=== PATIENT | female | born 1995 | race Caucasian/White ===

== ENCOUNTER 2024-05-27 11:40 | Outpatient (CLI) | payer OTHER ==
[~2024-05-27] VITALS: Ht 170.2 cm; Wt 97.3 kg
--- NOTE | 2024-05-27 11:45 | NUR ---
PT AMBULATORY TO UNIT WITH SPOUSE, SENT FROM OFFICE FOR HIGH BPX2. PT REPORTS NO LOF, NO VAGINAL BLEEDING, POSITIVE MOVEMENT, AND NO CTX. EFM CAT 1. WILL FOLLOW POC.
[2024-05-27 11:49] VITALS: BP 148/97; PULSE 77
[2024-05-27 11:55] VITALS: BP 124/71; PULSE 75
[2024-05-27 12:00] VITALS: TEMP 98.2
[2024-05-27 12:15] VITALS: BP 114/57; PULSE 76
[2024-05-27] MEDS ORDERED: LR 1,000 ML IV PRN (12:15)
[2024-05-27] MEDS ORDERED: PRENATAL TABLET PO (12:16)
[2024-05-27 12:21] LABS: BASO % 0.5 % (0.0-2.0); EOS # 0.2 K/mm3 (0.0-0.7); EOS % 2.2 % (0.0-4.0); GRAN # 5.3 K/mm3 (1.4-6.5); GRAN % 65.9 % (42.2-75.2); HEMATOCRIT 30.5 % (37.0-47.0); HEMOGLOBIN 10.4 g/dl (12.5-16.0); LYMPH % 24.3 % (20.0-51.0); MEAN CELL VOLUME 89 fl (80.0-100.0); MEAN CORPUSCULAR HEMOGLOBIN 31 pg (27-31); MEAN CORPUSCULAR HGB CONC 34 g/dl (33.0-37.0); MEAN PLATELET VOLUME 10.6 fl (7.4-10.4); MONO # 0.5 K/mm3 (0.1-0.6); MONO % 6.2 % (1.7-9.3); PLATELET COUNT 161 K/mm3 (130-400); RED BLOOD COUNT 3.41 M/mm3 (4.10-5.30); REDCELL DISTRIBUTION WIDTH-CV 11.9 % (11.5-14.5)
[2024-05-27 12:24] LABS: PH 6.5 (5.0-8.5); URINE APPEARANCE CLEAR (CLEAR/HAZY); URINE BLOOD NEGATIVE (NEGATIVE); URINE COLOR YELLOW (YELLOW); URINE GLUCOSE NEGATIVE (NEGATIVE); URINE KETONE NEGATIVE (NEGATIVE); URINE NITRATE NEGATIVE (NEGATIVE); URINE PROTEIN(semi-quant) NEGATIVE (NEGATIVE); URINE UROBILINOGEN 0.2 E.U/dL (0.2-1.0)
[2024-05-27 12:25] VITALS: BP 118/57; PULSE 75
--- NOTE | 2024-05-27 12:30 | NUR ---
ON UNIT, REVIEWED STRIP, LABS, AND VS. AT PT BEDSIDE TO DISCUSS GOOD RESULTS. PT UNDERSTANDS AND IS COMFORTABLE GOING HOME.
[2024-05-27 12:39] LABS: ALBUMIN 2.6 g/dL (3.5-5.0); BILIRUBIN,TOTAL 0.2 mg/dL (0.2-1.2); CALCIUM 9.2 mg/dL (8.4-10.2); CREATININE, serum 0.78 mg/dL (0.57-1.11); POTASSIUM 4.3 mEq/L (3.5-4.5); TOTAL PROTEIN 6.1 g/dl (6.2-8.1)
[2024-05-27 12:47] VITALS: BP 109/56; PULSE 74; TEMP 98.2
[2024-05-27 12:53] LABS: URINE RBC 0-2 /hpf (0-2)
[2024-05-27 12:54] LABS: URINE BACTERIA MODERATE /hpf (NONE SEEN)
[2024-05-27] MEDS ORDERED: Influenza Virus Vaccine, Trivalent '24-25 0.5 ML ONCE TODAY IM ONE (13:00)
[2024-05-27 14:03] LABS: COLLECTION METHOD CLEAN CATCH
== END 2024-05-27 12:47 | disposition home or self-care (01) ==
LOC: LDRO 11:40
PROVIDERS: Obstetrics & Gynecology
DX: Z34.93 Encounter for supervision of normal pregnancy, unspecified, third trimester (principal); Z3A.37 37 weeks gestation of pregnancy

== ENCOUNTER 2024-06-08 06:43 | Inpatient (IN) | payer OTHER ==
[~2024-06-08] VITALS: Ht 172.7 cm; Wt 100.5 kg
[2024-06-08] VITALS (61 sets, daily range): BP systolic 109–164; BP diastolic 58–102; PULSE 65–115; TEMP 98–98.2
[~2024-06-08 06:43] MED LIST: LR & Oxytocin 500 ML IV SCH; LR 1,000 ML IV PRN; LR 1,000 ML IV SCH; PRENATAL TABLET PO
[2024-06-08 07:38] LABS: BASO % 0.4 % (0.0-2.0); EOS # 0.3 K/mm3 (0.0-0.7); EOS % 2.9 % (0.0-4.0); GRAN # 5.7 K/mm3 (1.4-6.5); GRAN % 63.2 % (42.2-75.2); HEMOGLOBIN 11.2 g/dl (12.5-16.0); LYMPH # 2.5 K/mm3 (1.2-3.4); LYMPH % 27.3 % (20.0-51.0); MEAN CELL VOLUME 90 fl (80.0-100.0); MEAN CORPUSCULAR HEMOGLOBIN 31 pg (27-31); MEAN CORPUSCULAR HGB CONC 35 g/dl (33.0-37.0); MONO # 0.5 K/mm3 (0.1-0.6); MONO % 5.4 % (1.7-9.3); PLATELET COUNT 165 K/mm3 (130-400); REDCELL DISTRIBUTION WIDTH-CV 12.2 % (11.5-14.5)
[2024-06-08 07:39] LABS: HEMATOCRIT 32.5 % (37.0-47.0)
[2024-06-08 07:43] LABS: PH 5.5 (5.0-8.5); URINE APPEARANCE CLEAR (CLEAR/HAZY); URINE BLOOD NEGATIVE (NEGATIVE); URINE COLOR YELLOW (YELLOW); URINE GLUCOSE NEGATIVE (NEGATIVE); URINE KETONE NEGATIVE (NEGATIVE); URINE NITRATE NEGATIVE (NEGATIVE); URINE PROTEIN(semi-quant) 1+ (NEGATIVE); URINE UROBILINOGEN 0.2 E.U/dL (0.2-1.0)
[2024-06-08 07:50] LABS: COLLECTION METHOD CLEAN CATCH
[2024-06-08 07:56] LABS: ALBUMIN 2.6 g/dL (3.5-5.0); BILIRUBIN,TOTAL 0.2 mg/dL (0.2-1.2); CALCIUM 9.2 mg/dL (8.4-10.2); CREATININE, serum 0.79 mg/dL (0.57-1.11); TOTAL PROTEIN 6.3 g/dl (6.2-8.1)
[2024-06-08 12:42] LABS: TRICYCLIC ANTIDEPRESS URINE NEGATIVE (NEGATIVE)
--- NOTE | 2024-06-08 12:45 | NUR ---
DIFFICULTY TRACING FHT. RN AT BEDSIDE LISTENING TO HEART TONES THAT DID NOT TRACE AND TRYING TO CONTINUE GETTING FHT TO TRACE. MULTIPLE RN'S AT BEDSIDE TRYING TO ASSIST THROUGHT THE DAY. PT AND SPOUSE DO NOT WANT AN FSE PLACED ON BABY. RN CONTINUES TO MONITOR AT BEDSIDE.
--- NOTE | 2024-06-08 13:45 | NUR ---
DIFFICULTY TRACING CTX AT THIS TIME, FHT TRACING SPOTTY, BUT RN ATTEMPTING TO TRACE FHT AT BEDSIDE. WILL CONTINUE TO MONITOR. 1340- PT BP 175/100. REPEATED BP 162/94. CALLED DR WHITE AT THIS TIME. DR WHITE ORDERED THE LABATALOL PROTOCAL.
--- NOTE | 2024-06-08 14:30 | NUR ---
DIFFICULTY TRACING FHT DURING THIS TIME. MULTIPLE NURSES ATTEMPTING TO TRACE FHT. RN REMAINS AT BEDSIDE TRYING TO TRACE HEAT TONES AT THIS TIME. SECOND DOSE OF LABATALOL GIVEN AT 1430 DUE TO BP OF 159/100.
--- NOTE | 2024-06-08 16:45 | NUR ---
[address] WHITE TO REPORT RECURRENT VARRIABLES THAT ARE DIFFICULT TO TRACE, WITH ONE DOWN INTO THE 60'S. HE SAID THAT HE WOULD LOOK AT THE STRIP AND ASKED ME TO DO AN SVE ON THE PT AND UPDATE HIM AT THAT TIME. 1511 SVE /-2. [address] WHITE BACK TO UPDATE ON SVE. DR WHITE SAID THAT HE LOOKED OVER THE STRIP AND WAS OKAY WITH CONTINUING ON WITH PITOCIN. RN REMAINS AT BEDSIDE DURING THIS TIME. ATTEMPTING TO TRACE HEART TONES DURING CTX. DIFFICULTY TRACING CTX AT THIS TIME DUE TO MATERNAL POSITION.
[2024-06-08] MEDS ORDERED: ROPivacaine PF 0.2% 200 ML IV ONE (16:57)
--- NOTE | 2024-06-08 17:10 | NUR ---
1700- PT SEATED AT BEDSIDE, BP AND O2 MONITORS ON. CONSTANCE AT BEDSIDE DISCUSSING RISK OF EPIDURAL. PT GAVE VERBAL CONSENT FOR EPIDURAL. 1710- TEST DOSE. PT THEN TAPED AND REPOSITIONEDTO WEDGE RIGHT. PT TOLERATED THE PROCEEDURE WELL. BP HIGH DURING PROCEEDURE BUT DECREASED AFTERWARDS. DIFFICULTY TRACING FHT AT THIS TIME.
[2024-06-08] MEDS ORDERED: diphenhydrAMINE 25 MG CAP PO PRN (17:30)
[2024-06-08] MEDS ORDERED: LR 1,000 ML IV SCH (17:30)
[2024-06-08] MEDS ORDERED: ePHEDrine 50 MG/10 ML VIAL IV PRN (17:30)
[2024-06-08] MEDS ORDERED: Naloxone 0.4 MG/ML VIAL IV PRN (17:30)
[2024-06-08] MEDS ORDERED: diphenhydrAMINE 50 MG/ML 1 ML VIAL IV PRN (17:30)
[2024-06-08] MEDS ORDERED: LR 500 ML IV PRN (17:30)
[2024-06-08] MEDS ORDERED: Ondansetron 4 MG/2 ML VIAL IV PRN (17:30)
--- NOTE | 2024-06-08 17:35 | NUR ---
DR WHITE CALLED FOR AN UPDATE. HE WAS INFORMED THAT PT HAD JUST HAD A LATE DECEL. HE SAID THAT HE WOULD BE HERE SHORTLY AFTER 1800. 1739 PITOCIN WAS SHUT OFF DUE TO 3 LATE DECELS AND A VARRIABLE INTO THE 60'S.
--- NOTE | 2024-06-08 18:20 | NUR ---
Pit restart @ 1/2 of previous rate, 10 mU/min at this time per Dr.Newcomer calles, note Category I strip.
--- NOTE | 2024-06-08 18:25 | NUR ---
Repositioned right lateral with left leg up in stirrup. This board writer handholding US.
--- NOTE | 2024-06-08 18:27 | NUR ---
here for evaluation. Repeat SVE /-2 per . Discusses possibility of needing to place internal monitors in order to continue safely with induction of labor, pitocin use. Patient verbalizes understanding. Declines internal monitors at this time.
--- NOTE | 2024-06-08 18:31 | NUR ---
does bedside US to assist this typewriter ribbon winder in US placement.
--- NOTE | 2024-06-08 18:32 | NUR ---
Repositioned back in right lateral with left leg up in stirrup.
--- NOTE | 2024-06-08 19:16 | NUR ---
Repositioned upright in throne's. Note continued difficulty tracing FHT without handholding. Much difficulty palpating contractions, tracing with external toco.
--- NOTE | 2024-06-08 19:30 | NUR ---
Patient agreeable to FSE placement at this time. Repeat SVE /-2.
--- NOTE | 2024-06-08 19:34 | NUR ---
Repositioned left lateral with right leg up in stirrup.
--- NOTE | 2024-06-08 20:51 | NUR ---
here for evaluation. Reviews monitor strip and performs repeat SVE. This securities underwriter explains can only pick up worker her contractions with her sitting upright, if reposition, unable to trace contractions, therefore makes it difficult to descern decelerations.
--- NOTE | 2024-06-08 20:56 | NUR ---
Rate of pitocin decreased to 18mU/min, as noted new onset recurrent late decelerations.
--- NOTE | 2024-06-08 21:55 | NUR ---
Note intermittent late decels correlating with coupling contraction pattern.
--- NOTE | 2024-06-08 22:15 | NUR ---
States she is beginning to feel pressure in her pelvis with contractions. Pushes PCEA button at this time.
--- NOTE | 2024-06-08 23:33 | NUR ---
First push attempt with instruction.
[2024-06-09] VITALS (16 sets, daily range): BP systolic 132–157; BP diastolic 63–94; PULSE 71–115; TEMP 97.7–98.5
--- NOTE | 2024-06-09 | NUR ---
After less than 30 minutes of expulsive pushing efforts, spontaneous vaginal delivery of viable male infant by at this time. Delayed cord clamping per patient request. Cord doubly clamped and cut by father of baby under direction of . immediately to maternal abdomen. Prudence Eastman RN, nursery nurse at bedside to dry and stimulate infant. Once cord clamped and cut, moved skin to skin on maternal chest.
--- NOTE | 2024-06-09 00:10 | NUR ---
Spontaneous vaginal delivery of placenta by at this time. Pit bolus begun @ 333mU/min immediately following. Perineum intact per 's assessment, no repair required. Epidural pump off at this time.
--- NOTE | 2024-06-09 00:12 | NUR ---
Note free flow lochia. remains in room, aware. Assesses and gives verbal order for Cytotec 800 mcg rectally.
--- NOTE | 2024-06-09 00:17 | NUR ---
800 mcg Cytotec administered rectally by at this time.
[2024-06-09] MEDS ORDERED: Magnes Hydrox (MOM) 80 MG/ML 30 ML CUP PO PRN (00:30)
[2024-06-09] MEDS ORDERED: Loratadine 10 MG TAB PO PRN (00:30)
[2024-06-09] MEDS ORDERED: oxyCODONE 5 MG TAB PO PRN (00:45)
[2024-06-09] MEDS ORDERED: Tdap Vaccine 0.5 ML SYRINGE IM SCH (00:45)
[2024-06-09] MEDS ORDERED: miSOPROStol 200 MCG TAB RC ONE (00:45)
[2024-06-09] MEDS ORDERED: Phenylephrine/Mineral Oil/Petrolatum 57 GM TUBE RC PRN (00:45)
[2024-06-09] MEDS ORDERED: Measles/Mumps/Rubella Virus Vaccine Live w Diluent 0.5 ML VIAL SQ SCH (00:45)
[2024-06-09] MEDS ORDERED: Ibuprofen 600 MG TAB PO SCH (00:45)
[2024-06-09] MEDS ORDERED: Mag/Al Hydrox/Simeth Susp 30 ML CUP PO PRN (00:45)
[2024-06-09] MEDS ORDERED: Witch Hazel 50% Pads Bulk TUB TP PRN (00:45)
[2024-06-09] MEDS ORDERED: Naloxone 0.4 MG/ML VIAL IV PRN (00:45)
[2024-06-09] MEDS ORDERED: Acetaminophen 500 MG TAB PO SCH (00:45)
--- NOTE | 2024-06-09 02:00 | NUR ---
Note fundus shifted to right, one above umbilicus, bladder palpates full. Straight cathed at this time for 375 mL urine return. Fundus firm, midline, @ U following straight cath. Note, while prepping for straight cath, right labial laceration noted, but not bleeding. Explained to patient, potential for this area to burn when able to spontaneously void. Verbalizes understanding.
--- NOTE | 2024-06-09 02:45 | NUR ---
Assisted out of bed using Tara Steady for first time post delivery. Note patient left leg still heavy. Patient called out to nurse's station stating she felt urge to have BM. Andrew care provided. Patient unable to spontaneously void, and did not have BM at this time. Note, recently straight cathed. Mesh underwear, andrew pad, ice pack, clean gown applied. Transferred to PP room 214 per Tara Steady. Instructed to call out to nurse's station for assistance before attempting to get out of bed. Verbalizes understanding.
[2024-06-09 05:57] LABS: HEMATOCRIT 26.8 % (37.0-47.0)
[2024-06-09 05:58] LABS: HEMOGLOBIN 9.1 g/dl (12.5-16.0)
[2024-06-09] MEDS ORDERED: Sennosides/Docusate 8.6-50 MG TAB PO SCH (08:00)
[2024-06-09] MEDS ORDERED: Prenatal Vitamins/Iron/FA TAB PO SCH (09:00)
--- NOTE | 2024-06-09 10:53 | NUR ---
Initial visit; Patient sleeping, Major Donor Coordinator spoke with her ; congratulating him and her as well for the of their son. Major Donor Coordinator thanked Dad for helping choose [facility].
--- NOTE | 2024-06-09 13:55 | NUR ---
tank worker received consult for risk of presence of illegal drugs in . tank worker spoke with CHARLES Molina who expressed no concerns and reports the mother/FOB are being appropriate and the FOB is a good support being involved with infant. RN confirmed mother had negative UDS upon admission and infant cord blood is pending. AG and Student AG Contreras met with pt, her , Dominic and . Pt had female visitors in room who stepped out by choice. Mother verified her number on file and that she lives with in [place]. Pt states she was working and just stopped a few days ago. 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 She states to have recently moved from [facility] and moved to [place] to be with at [facility]. They intend to move back in a month or so to [place]. Mother will find a daycare at that point. She and FOB report to have good supports and family supports. Pt said her sister and FOB visited and family in room is respectful. Mother is not connected with any resources and does not get WIC/Food stamps. She intends to breast feed and obtained a pump from a friend. SW provided information on how to obtain a breast pump through insurance and getting a script from [facility]. Mother was appreciative of this. She intends to have see Dr. Tara Bill for Pediatric care. Parents have a carseat in their car and have a reliable form of transportation. Parents have a crib and bassinet for infant to sleep. They report to have enough diapers/wipes/clothes. Mom had no concerns for THOMAS and Mental Health. AG provided her the [facility] Resource Guide and [facility] list of therapists/options. They had no further questions or concerns for AG. AG called CHARLES Molina and provided update.
[2024-06-09] MEDS ORDERED: traZODone 50 MG TAB PO PRN (21:00)
[2024-06-10 00:38] VITALS: BP 126/75; PULSE 82; TEMP 98.2
[2024-06-10 07:30] VITALS: BP 134/76; PULSE 76; TEMP 98
[2024-06-10] MEDS ORDERED: IBU600 MG PO (09:06)
[2024-06-10 11:36] VITALS: BP 135/65; PULSE 90; TEMP 97.9
[2024-06-10 13:59] VITALS: BP 137/89; PULSE 93; TEMP 98
== END 2024-06-10 15:20 | disposition home or self-care (01) | DRG 807 ==
LOC: LDR 06:43 → OB 06:43
PROVIDERS: ADMIT Obstetrics & Gynecology
PROC: 10E0XZZ Delivery of Products of Conception, External Approach (ICD-10-PCS; principal; 2024-06-09)
PROC: 3E033VJ Introduction of Other Hormone into Peripheral Vein, Percutaneous Approach (ICD-10-PCS; 2024-06-09)
PROC: 10907ZC Drainage of Amniotic Fluid, Therapeutic from Products of Conception, Via Natural or Artificial Opening (ICD-10-PCS; 2024-06-09)
DX: O35.EXX0 Maternal care for other (suspected) fetal abnormality and damage, fetal genitourinary anomalies, not applicable or unspecified (principal); Z37.0 Single live birth; Z3A.38 38 weeks gestation of pregnancy; Z23 Encounter for immunization; O76 Abnormality in fetal heart rate and rhythm complicating labor and delivery; O13.4 Gestational [pregnancy-induced] hypertension without significant proteinuria, complicating childbirth
CPT/HCPCS: J1920; J2590; J2795; J7120